=== PATIENT | female | born 1990 | race Caucasian/White ===

== ENCOUNTER 2017-11-09 16:41 | Emergency (ER) | payer OTHER ==
[2017-11-09 16:49] VITALS: BMI 42.0
[2017-11-09 16:50] VITALS: TEMP 98.2
--- NOTE | 2017-11-09 18:05 | ED PDOC ---
Arrival/HPI - General Chief Complaint: Medical Clearance Time Seen by Provider: 11/09/17 17:49 Historian: Patient - History of Present Illness Narrative History of Present Illness (Text): 11/09/17 18:03 25 F presents with left axillary pressure and reproducible left pressure on chest and below left breast tissue. Patient states she feels nausea, with the pain and feels weak in her left arm because of the swelling. Patient denies any trauma. Patient has been to ED before for similar symptoms. 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 She is right handed and tries not to use her left arm that often compared to her right hand. No findings. EKG is NSR @ 68bpm. 11/09/17 20:12 Time/Duration: < week Symptom Onset: Gradual Symptom Course: Intermittent Activities at Onset: Rest, Light Past Medical History - Provider Review Nursing Documentation Reviewed: Yes - Infectious Disease Hx of Infectious Diseases: None - Cardiac Hx Cardiac Disorders: No - Pulmonary Hx Respiratory Disorders: No - Neurological Hx Migraine: Yes - HEENT Hx HEENT Disorder: No - Renal Hx Renal Disorder: No - Endocrine/Metabolic Hx Endocrine Disorders: No - Hematological/Oncological Hx Blood Disorders: No - Integumentary Hx Dermatological Disorder: No - Musculoskeletal/Rheumatological Hx Musculoskeletal Disorders: No - Gastrointestinal Hx Gastrointestinal Disorders: No - Genitourinary/Gynecological Hx Genitourinary Disorders: No - Psychiatric Hx Psychophysiologic Disorder: No Hx Substance Use: No - Anesthesia Hx Anesthesia: No Family/Social History - Physician Review Nursing Documentation Reviewed: Yes Family/Social History: No Known Family HX Smoking Status: Current Some Days Smoker Hx Alcohol Use: No Hx Substance Use: No Allergies/Home Meds Allergies/Adverse Reactions: Allergies No Known Allergies Allergy (Verified 11/09/17 16:49) Review of Systems - Physician Review All systems were reviewed & negative as marked: Yes - Review of Systems Constitutional: Normal. absent: Fatigue, Weight Change, Fevers, Night Sweats Eyes: Normal. absent: Vision Changes, Photophobia, Eye Pain ENT: Normal. absent: Hearing Changes, Tinnitus, TMJ Pain Respiratory: Normal. absent: SOB, Cough, Sputum Cardiovascular: Normal, Chest Pain. absent: Palpitations, Edema Gastrointestinal: Normal. absent: Abdominal Pain Genitourinary Female: Normal. absent: Dysuria, Frequency, Hematuria Musculoskeletal: Normal, Back Pain. absent: Arthralgias, Neck Pain Skin: Normal. absent: Rash, Pruritis, Skin Lesions Neurological: Normal. absent: Headache, Dizziness, Focal Weakness Endocrine: Normal. absent: Diaphoresis, Polyuria, Polydipsia Hemo/Lymphatic: Normal. absent: Adenopathy, Easy Bleeding, Easy Bruising Psychiatric: Normal. absent: Anxiety, Depression, Suicidal Ideation Physical Exam Vital Signs Reviewed: Yes Vital Signs Temp Pulse Resp BP Pulse Ox 11/09/17 19:10 74 16 102/57 L 100 11/09/17 16:50 98.2 F 75 19 94/67 L 97 11/09/17 16:49 98.2 F 79 19 94/67 L 98 Temperature: Afebrile Blood Pressure: Hypotensive Pulse: Regular Respiratory Rate: Normal Appearance: Positive for: Non-Toxic, Comfortable Pain Distress: Mild Mental Status: Positive for: Alert and Oriented X 3 - Systems Exam Head: Present: Atraumatic, Normocephalic Pupils: Present: PERRL Extroacular Muscles: Present: EOMI. No: Gaze Palsy, Entrapment Conjunctiva: Present: Normal. No: Injected, Icteric Mouth: Present: Moist Mucous Membranes, Normal Lips, Normal Tounge, Normal Teeth. No: Dry, Drooling, Trismus Neck: Present: Normal Range of Motion, Trachea Midline. No: Meningeal Signs, MIDLINE TENDERNESS, Paraspinal Tenderness, JVD Cardiovascular: Present: Regular Rate and Rhythm, Normal S1, S2. No: Murmurs, Tachycardic, Bradycardic, Rub, Gallop Abdomen: Present: Normal Bowel Sounds. No: Tenderness, Distention Upper Extremity: Present: Normal Inspection, Normal ROM, NORMAL PULSES, Capillary Refill < 2s. No: Cyanosis, Edema Lower Extremity: Present: Normal Inspection, NORMAL PULSES, Normal ROM, Capillary Refill < 2 s. No: Edema, CALF TENDERNESS Neurological: Present: GCS=15, CN II-XII Intact, Speech Normal, Motor Func Grossly Intact, Normal Sensory Function, Norm Deep Tendon Reflexes Skin: Present: Warm, Dry, Normal Color. No: Rashes Psychiatric: Present: Alert, Oriented x 3, Normal Insight, Normal Concentration , Normal Affect, Normal Mood Medical Decision Making ED Course and Treatment: 11/09/17 18:13 ekg NS 1L bolus cxr cbc, cmp, mg, phos troponin I coags 11/09/17 18:43 PERC negative for PE Re-evaluation Time: 20:13 Reassessment Condition: Re-examined, Unchanged - Lab Interpretations Lab Results: 11/09/17 19:00 11/09/17 19:10 Lab Results 11/09/17 19:10: Sodium 139, Potassium 4.2, Chloride 105, Carbon Dioxide 24, Anion Gap 14, BUN 19, Creatinine 0.7, Est GFR ( Amer) > 60, Est GFR (Non- Af Amer) > 60, Random Glucose 74, Calcium 9.9, Total Bilirubin 0.5, AST 14, ALT 29, Alkaline Phosphatase 73, Total Protein 7.1, Albumin 4.0, Globulin 3.1, Albumin/Globulin Ratio 1.3 11/09/17 19:00: Phosphorus 3.4, Magnesium 2.1, Troponin I < 0.01 11/09/17 19:00: PT 13.4 H, INR 1.17 H, APTT 30.5 11/09/17 19:00: WBC 7.9, RBC 4.13, Hgb 11.4 L, Hct 35.5 L, MCV 86.0, MCH 27.6, MCHC 32.1, RDW 14.3, Plt Count 251, MPV 9.0, Gran % 52.2, Lymph % (Auto) 42.5 H , [place] % (Auto) 3.8, Eos % (Auto) 1.0 L, Baso % (Auto) 0.5, Gran # 4.14, Lymph # (Auto) 3.4, [place] # (Auto) 0.3, Eos # (Auto) 0.1, Baso # (Auto) 0.04 Interpretation: No clinic. lab abnormalty - RAD Interpretation Radiology Orders: 11/09/17 18:39 CHEST PORTABLE [RAD] Stat - EKG Interpretation Type: 12 lead EKG (68bpm) - Medication Orders Current Medication Orders: Discontinued Medications Sodium Chloride (Sodium Chloride 0.9%) 1,000 mls @ 999 mls/hr IV .Q1H1M STA Stop: 11/09/17 19:39 Last Admin: 11/09/17 19:05 Dose: 999 mls/hr eMAR Start Stop Document 11/09/17 19:05 SRE (Rec: 11/09/17 19:07 SRE [id number]) Intravenous Solution Start Date 11/09/17 Start Time 19:06 End Date 11/09/17 End time 20:00 Total Infusion Time 54 Disposition/Present on Arrival - Present on Arrival Any Indicators Present on Arrival: No History of DVT/PE: No History of Uncontrolled Diabetes: No Urinary Catheter: No History of Decub. Ulcer: No History Surgical Site Infection Following: None - Disposition Have Diagnosis and Disposition been Completed?: Yes Diagnosis: Chest wall pain Disposition: HOME/ ROUTINE Disposition Time: 20:39 Patient Plan: Discharge Patient Problems: Current Active Problems Problem Status Onset Chest wall pain Acute Condition: GOOD Discharge Instructions (ExitCare): Chest Pain (ED) [facility] - Follow up with primary Forms: [employer] (Arabic)
[2017-11-09] MEDS ORDERED: Sodium Chloride 0.9% 1,000 ML IV STA (18:39)
[2017-11-09 19:16] LABS: BASO # 0.04 K/mm3 (0.0-2.0); BASO % 0.5 % (0.0-3.0); EOS # 0.1 (0.0-0.7); GRAN # 4.14 (1.4-6.5); GRAN % 52.2 % (50.0-68.0); HEMOGLOBIN 11.4 g/dL (12.0-16.0); LYMPH # 3.4 (1.2-3.4); LYMPH % 42.5 % (22.0-35.0); MEAN CORPUSCULAR HEMOGLOBIN 27.6 pg (25.0-35.0); MEAN CORPUSCULAR HGB CONC 32.1 g/dl (31.0-37.0); MONO # 0.3 (0.1-0.6); MONO % 3.8 % (1.0-6.0); RBC 4.13 10^6/uL (3.5-6.1); RED CELL DISTRIBUTION WIDTH 14.3 % (11.5-14.5); WHITE BLOOD COUNT 7.9 10^3/ul (4.5-11.0)
[2017-11-09 19:28] LABS: INR 1.17 (0.93-1.08); PARTIAL THROMBOPLASTIN TIME 30.5 Seconds (25.1-36.5); PROTHROMBIN TIME 13.4 SECONDS (9.4-12.5)
[2017-11-09 19:31] LABS: ALB/GLOB RATIO 1.3 (1.1-1.8); ALT/SGPT 29 U/L (7-56); AST/SGOT 14 U/L (14-36); BLOOD UREA NITROGEN 19 mg/dL (7-21); CALCIUM 9.9 mg/dL (8.4-10.5); GFR AFRICAN-AMERICAN > 60; GFR NON-AFRICAN AMERICAN > 60
[2017-11-09 19:38] LABS: MAGNESIUM 2.1 mg/dL (1.7-2.2)
[2017-11-09 19:39] LABS: TROPONIN I < 0.01 ng/mL
[2017-11-09 19:42] VITALS: BP 102/57; PULSE 74; RESP 16; O2SAT 100
--- NOTE | 2017-11-10 10:26 | RAD ---
HISTORY: chest pain COMPARISON: No prior. FINDINGS: LUNGS: No active pulmonary disease. PLEURA: No significant pleural effusion identified, no pneumothorax apparent. CARDIOVASCULAR: Normal. OSSEOUS STRUCTURES: No significant abnormalities. VISUALIZED UPPER ABDOMEN: Normal. OTHER FINDINGS: None. IMPRESSION: No active disease.
--- NOTE | 2017-11-10 13:08 | CARD ---
APPROVED REPORT EKG Measurement Heart [id number] <Conclusion> Normal sinus rhythm Normal ECG
== END 2017-11-09 20:58 | disposition home or self-care (01) ==
LOC: ED 16:41
DX: R07.89 Other chest pain (principal)
CPT/HCPCS: 71045; 80053; 83735; 84100; 84484; 85025; 85610; 85730; 93005; 96360; 99283; J7040

== ENCOUNTER 2018-03-29 11:59 | Emergency (ER) | payer OTHER ==
[2018-03-29 11:59] VITALS: BMI 42.0
[2018-03-29] MEDS ORDERED: Sodium Chloride 0.9% 1,000 ML IV STA (12:15)
--- NOTE | 2018-03-29 12:29 | ED PDOC ---
Arrival/HPI - General Chief Complaint: Back Pain Time Seen by Provider: 03/29/18 12:02 Historian: Patient - History of Present Illness Narrative History of Present Illness (Text): 03/29/18 12:14 A 27 year old female, with no significant past medical history, presents to the emergency department complaining of left flank pain and suprapubic pain for a few days. Patient reports also experiencing dysuria, but denies any falls, nausea, vomiting, or any other complaints. Also, patient mentions she takes Ibuprofen every day at home. No PMD Past Medical History - Provider Review Nursing Documentation Reviewed: Yes - Infectious Disease Hx of Infectious Diseases: None - Cardiac Hx Cardiac Disorders: No - Pulmonary Hx Respiratory Disorders: No - Neurological Hx Migraine: Yes - HEENT Hx HEENT Disorder: No - Renal Hx Renal Disorder: No - Endocrine/Metabolic Hx Endocrine Disorders: No - Hematological/Oncological Hx Blood Disorders: No - Integumentary Hx Dermatological Disorder: No - Musculoskeletal/Rheumatological Hx Musculoskeletal Disorders: No - Gastrointestinal Hx Gastrointestinal Disorders: No - Genitourinary/Gynecological Hx Genitourinary Disorders: No - Psychiatric Hx Psychophysiologic Disorder: No Hx Substance Use: No - Anesthesia Hx Anesthesia: No Family/Social History - Physician Review Nursing Documentation Reviewed: Yes Family/Social History: No Known Family HX Smoking Status: Never Smoked Hx Alcohol Use: Yes Frequency of alcohol use: Socially Hx Substance Use: No Allergies/Home Meds Allergies/Adverse Reactions: Allergies No Known Allergies Allergy (Verified 03/29/18 12:06) Home Medications: Home Meds Medication Instructions Recorded Confirmed No Known Home Med 03/29/18 03/29/18 Review of Systems - Physician Review All systems were reviewed & negative as marked: Yes - Review of Systems Constitutional: absent: Fevers, Night Sweats Respiratory: absent: SOB Cardiovascular: absent: Chest Pain Gastrointestinal: Abdominal Pain (suprapubic). absent: Diarrhea, Nausea, Vomiting Genitourinary Female: Dysuria Musculoskeletal: Back Pain (left flank pain) Physical Exam Vital Signs Reviewed: Yes Vital Signs Temp Pulse Resp BP Pulse Ox 03/29/18 13:05 98 F 80 16 120/75 99 03/29/18 11:59 98.1 F 83 18 111/76 97 Temperature: Afebrile Blood Pressure: Normal Pulse: Regular Respiratory Rate: Normal Appearance: Positive for: Well-Appearing Pain Distress: None Mental Status: Positive for: Alert and Oriented X 3 - Systems Exam Head: Present: Atraumatic, Normocephalic Pupils: Present: PERRL Extroacular Muscles: Present: EOMI Conjunctiva: Present: Normal Mouth: Present: Moist Mucous Membranes Neck: Present: Normal Range of Motion Respiratory/Chest: Present: Clear to Auscultation, Good Air Exchange. No: Respiratory Distress, Accessory Muscle Use Cardiovascular: Present: Regular Rate and Rhythm, Normal S1, S2. No: Murmurs Abdomen: Present: Tenderness (suprapubic region) Back: Present: Other (left flank tenderness) Upper Extremity: Present: Normal Inspection. No: Cyanosis, Edema Lower Extremity: Present: Normal Inspection. No: Edema Neurological: Present: GCS=15, CN II-XII Intact, Speech Normal Skin: Present: Warm, Dry, Normal Color. No: Rashes Psychiatric: Present: Alert, Oriented x 3, Normal Insight, Normal Concentration Medical Decision Making ED Course and Treatment: 03/29/18 12:16 Impression: 27 year old female with left flank pain and suprapubic pain. Physical exam shows left flank tenderness and suprapubic tenderness. Plan: -- Labs -- Urinalysis -- Tylenol -- IV Fluids -- Reassess and disposition Progress Notes: 03/29/18 14:40 consider uti vs pyelo vs renal colic vs msk pain - labs imaging pending labs unremarkable. ua neg for blood, infection. pt refuses ct states she feels well for dc. less likely uti pyelo. pt understands risks of not obtaining ct, prefers to return with any worsening. - Lab Interpretations Lab Results: 03/29/18 12:40 03/29/18 12:40 Lab Results 03/29/18 12:40: Sodium 140, Potassium 4.1, Chloride 104, Carbon Dioxide 24, Anion Gap 16, BUN 14, Creatinine 0.6 L, Est GFR ( Amer) > 60, Est GFR ( Non-Af Amer) > 60, Random Glucose 99, Calcium 9.5, Magnesium 1.8, Total Bilirubin 0.6, AST 19, ALT 26, Alkaline Phosphatase 70, Total Protein 7.7, Albumin 4.2, Globulin 3.4, Albumin/Globulin Ratio 1.2, Lipase 35 03/29/18 12:40: PT 13.2 H, INR 1.14 H, APTT 29.4 03/29/18 12:40: WBC 8.1, RBC 4.42, Hgb 12.1, Hct 36.9, MCV 83.5, MCH 27.4, MCHC 32.8, RDW 14.0, Plt Count 268, MPV 8.8, Gran % 53.5, Lymph % (Auto) 42.4 H, [place] % (Auto) 3.0, Eos % (Auto) 0.9 L, Baso % (Auto) 0.2, Gran # 4.35, Lymph # ( Auto) 3.5 H, [place] # (Auto) 0.2, Eos # (Auto) 0.1, Baso # (Auto) 0.02 03/29/18 12:33: Urine Color Yellow, Urine Appearance Clear, Urine pH 6.0, Ur Specific Jermyn 1.020, Urine Protein Negative, Urine Glucose (UA) Negative, Urine Ketones Negative, Urine Blood Negative, Urine Nitrate Negative, Urine Bilirubin Negative, Urine Urobilinogen 0.2, Ur Leukocyte Esterase Negative, Urine HCG, Qual Negative - Medication Orders Current Medication Orders: Discontinued Medications Acetaminophen (Tylenol 325mg Tab) 975 mg PO STAT STA Stop: 03/29/18 12:17 Last Admin: 03/29/18 12:46 Dose: 975 mg MAR Pain/Vitals Document 03/29/18 12:46 SRE (Rec: 03/29/18 12:46 SRE [id number]) Pain Reassessment Is This A Pain ReAssessment? Yes Sleep Is patient sleeping during reassessment? No Presence of Pain Presence of Pain Yes Pain Scale Used Pain Scale Used Numeric Location Left, Right or Bilateral Left Pain Location Body Site Back Description Intermittent Intensity 4 Sodium Chloride (Sodium Chloride 0.9%) 1,000 mls @ 1,000 mls/hr IV .Q1H STA Stop: 03/29/18 13:14 Last Admin: 03/29/18 12:43 Dose: 1,000 mls/hr eMAR Start Stop Document 03/29/18 12:43 SRE (Rec: 03/29/18 12:46 SRE [id number]) Intravenous Solution Start Date 03/29/18 Start Time 12:46 End Date 03/29/18 End time 13:50 Total Infusion Time 64 - Scribe Statement The provider has reviewed the documentation as recorded by the Tiera Garcia Provider Scribe Attestation: All medical record entries made by the Tiera were at my direction and personally dictated by me. I have reviewed the chart and agree that the record accurately reflects my personal performance of the history, physical exam, medical decision making, and the department course for this patient. I have also personally directed, reviewed, and agree with the discharge instructions and disposition. Disposition/Present on Arrival - Present on Arrival Any Indicators Present on Arrival: No History of DVT/PE: No History of Uncontrolled Diabetes: No Urinary Catheter: No History of Decub. Ulcer: No History Surgical Site Infection Following: None - Disposition Have Diagnosis and Disposition been Completed?: Yes Diagnosis: Flank pain Disposition: HOME/ ROUTINE Disposition Time: 01:00 Condition: STABLE Discharge Instructions (ExitCare): Acute Abdomen (Belly Pain), Adult (DC), Flank Pain (DC) Additional Instructions: please return to emergency room with worsening symptoms. you are declining a ct scan today, but you are welcome to return to any emergency room with any concern at any time. Referrals: [facility] [Outside] - Follow up with primary [facility] [place]] - Follow up with primary Amy Swift MD [Primary Care Provider] - Follow up with primary Jackson Gilliland MD [Staff Provider] - Follow up with primary Forms: [employer] (Bulgarian)
[2018-03-29 12:36] LABS: URINE BILIRUBIN NEGATIVE (NEGATIVE); URINE BLOOD NEGATIVE (NEGATIVE); URINE GLUCOSE (UA) NEGATIVE (NEGATIVE); URINE LEUKOCYTE ESTERASE NEGATIVE Leu/uL (NEGATIVE); URINE PROTEIN NEGATIVE mg/dL (<30 mg/dL); URINE UROBILINOGEN 0.2 E.U./dL (<1 E.U./dL)
[2018-03-29 12:44] LABS: URINE COLOR YELLOW (YELLOW)
[2018-03-29 12:45] LABS: HCG,QUALITATIVE URINE NEGATIVE (NEGATIVE); URINE APPEARANCE CLEAR (CLEAR)
[2018-03-29 12:53] LABS: BASO # 0.02 K/mm3 (0.0-2.0); BASO % 0.2 % (0.0-3.0); EOS # 0.1 (0.0-0.7); EOS % 0.9 % (1.5-5.0); GRAN # 4.35 (1.4-6.5); GRAN % 53.5 % (50.0-68.0); HEMOGLOBIN 12.1 g/dL (12.0-16.0); LYMPH # 3.5 (1.2-3.4); LYMPH % 42.4 % (22.0-35.0); MEAN CELL VOLUME 83.5 fl (80.0-105.0); MEAN CORPUSCULAR HEMOGLOBIN 27.4 pg (25.0-35.0); MEAN CORPUSCULAR HGB CONC 32.8 g/dl (31.0-37.0); MEAN PLATELET VOLUME 8.8 fl (7.0-11.0); MONO # 0.2 (0.1-0.6); RBC 4.42 10^6/uL (3.5-6.1); WHITE BLOOD COUNT 8.1 10^3/ul (4.5-11.0)
[2018-03-29 13:01] LABS: ALB/GLOB RATIO 1.2 (1.1-1.8); ALBUMIN 4.2 g/dL (3.0-4.8); ALT/SGPT 26 U/L (7-56); AST/SGOT 19 U/L (14-36); BLOOD UREA NITROGEN 14 mg/dL (7-21); CALCIUM 9.5 mg/dL (8.4-10.5); GFR AFRICAN-AMERICAN > 60; GFR NON-AFRICAN AMERICAN > 60; LIPASE 35 U/L (23-300)
[2018-03-29 13:06] VITALS: BP 120/75; PULSE 80; RESP 16; TEMP 98; O2SAT 99
[2018-03-29 13:06] LABS: INR 1.14 (0.93-1.08); PARTIAL THROMBOPLASTIN TIME 29.4 Seconds (25.1-36.5); PROTHROMBIN TIME 13.2 SECONDS (9.4-12.5)
== END 2018-03-29 13:26 | disposition home or self-care (01) ==
LOC: ED 11:59
DX: R10.9 Unspecified abdominal pain (principal)
CPT/HCPCS: 80053; 81003; 83690; 83735; 84703; 85025; 85610; 85730; 96360; 99283; J7030

== ENCOUNTER 2018-06-13 10:00 | Emergency (ER) | payer OTHER ==
[2018-06-13 10:00] VITALS: BMI 42.0
[2018-06-13 10:24] VITALS: RESP 18
[2018-06-13 11:43] LABS: BASO # 0.02 K/mm3 (0.0-2.0); BASO % 0.3 % (0.0-3.0); EOS # 0.1 (0.0-0.7); EOS % 0.9 % (1.5-5.0); GRAN # 3.61 (1.4-6.5); GRAN % 53.1 % (50.0-68.0); HEMOGLOBIN 12.6 g/dL (12.0-16.0); LYMPH # 2.7 (1.2-3.4); LYMPH % 40.3 % (22.0-35.0); MEAN CELL VOLUME 82.6 fl (80.0-105.0); MEAN CORPUSCULAR HEMOGLOBIN 27.1 pg (25.0-35.0); MEAN CORPUSCULAR HGB CONC 32.8 g/dl (31.0-37.0); MEAN PLATELET VOLUME 8.7 fl (7.0-11.0); MONO # 0.4 (0.1-0.6); MONO % 5.4 % (1.0-6.0); RBC 4.65 10^6/uL (3.5-6.1); RED CELL DISTRIBUTION WIDTH 13.9 % (11.5-14.5); WHITE BLOOD COUNT 6.8 10^3/ul (4.5-11.0)
[2018-06-13 11:51] LABS: INR 1.15; PARTIAL THROMBOPLASTIN TIME 34.4 Seconds (25.1-36.5); PROTHROMBIN TIME 13.3 SECONDS (9.4-12.5)
[2018-06-13 11:54] LABS: ALB/GLOB RATIO 1.2 (1.1-1.8); ALBUMIN 4.4 g/dL (3.0-4.8); ALT/SGPT 20 U/L (7-56); AST/SGOT 22 U/L (14-36); BLOOD UREA NITROGEN 16 mg/dL (7-21); CALCIUM 9.4 mg/dL (8.4-10.5); GFR NON-AFRICAN AMERICAN > 60
[2018-06-13 12:02] LABS: TROPONIN I < 0.01 ng/mL
--- NOTE | 2018-06-13 13:58 | ED PDOC ---
Arrival/HPI - General Chief Complaint: Chest Pain Time Seen by Provider: 06/13/18 10:32 Historian: Patient - History of Present Illness Narrative History of Present Illness (Text): 06/13/18 13:53 27yo female with no pmhx who present with 2weeks history of intermittent palpitations and midsternal chest pain that radiates to her left shoulder. states the pain usually makes her have SOB. She have not taken any medication for the pain. Denies fever chills, nausea, vomiting, diarrhea, constipations, nausea, diaphoresis, LE edema, calf pain, recent surgery/travel, OCP use. Past Medical History - Provider Review Nursing Documentation Reviewed: Yes - Infectious Disease Hx of Infectious Diseases: None - Cardiac Hx Cardiac Disorders: No - Pulmonary Hx Respiratory Disorders: No - Neurological Hx Neurological Disorder: Yes Hx Migraine: Yes - HEENT Hx HEENT Disorder: No - Renal Hx Renal Disorder: No - Endocrine/Metabolic Hx Endocrine Disorders: No - Hematological/Oncological Hx Blood Disorders: No - Integumentary Hx Dermatological Disorder: No - Musculoskeletal/Rheumatological Hx Musculoskeletal Disorders: No - Gastrointestinal Hx Gastrointestinal Disorders: No - Genitourinary/Gynecological Hx Genitourinary Disorders: No - Psychiatric Hx Psychophysiologic Disorder: Yes Hx Anxiety: Yes Hx Substance Use: No - Anesthesia Hx Anesthesia: No Family/Social History - Physician Review Nursing Documentation Reviewed: Yes Family/Social History: Unknown Family HX Smoking Status: Never Smoked Hx Alcohol Use: No Hx Substance Use: No Allergies/Home Meds Allergies/Adverse Reactions: Allergies No Known Allergies Allergy (Verified 04/25/18 10:14) Review of Systems - Physician Review All systems were reviewed & negative as marked: Yes - Review of Systems Constitutional: Normal Eyes: Normal ENT: Normal Respiratory: Normal Cardiovascular: Chest Pain, Palpitations Gastrointestinal: Normal Genitourinary Female: Normal Musculoskeletal: Normal Skin: Normal Neurological: Normal Endocrine: Normal Hemo/Lymphatic: Normal Psychiatric: Normal Physical Exam Vital Signs Reviewed: Yes Vital Signs Temp Pulse Resp BP Pulse Ox 06/13/18 14:32 99 06/13/18 14:30 98.2 F 82 18 114/72 99 06/13/18 12:55 80 18 119/68 99 06/13/18 10:18 98.7 F 87 18 104/70 98 Temperature: Afebrile Blood Pressure: Normal Pulse: Regular Respiratory Rate: Normal Appearance: Positive for: Well-Appearing, Non-Toxic, Comfortable Pain Distress: None Mental Status: Positive for: Alert and Oriented X 3 - Systems Exam Head: Present: Atraumatic, Normocephalic Pupils: Present: PERRL Extroacular Muscles: Present: EOMI Conjunctiva: Present: Normal Mouth: Present: Moist Mucous Membranes Neck: Present: Normal Range of Motion Respiratory/Chest: Present: Clear to Auscultation, Good Air Exchange. No: Respiratory Distress, Accessory Muscle Use, Wheezes, Decreased Breath Sounds, Rales, Retracting, Rhonchi Cardiovascular: Present: Regular Rate and Rhythm, Normal S1, S2. No: Murmurs Abdomen: No: Tenderness, Distention, Peritoneal Signs Back: Present: Normal Inspection Upper Extremity: Present: Normal Inspection, Normal ROM, NORMAL PULSES, Neurovascularly Intact. No: Cyanosis, Edema, Tenderness, Swelling Lower Extremity: Present: Normal Inspection. No: Edema Neurological: Present: GCS=15, CN II-XII Intact, Speech Normal Skin: Present: Warm, Dry, Normal Color. No: Rashes Psychiatric: Present: Alert, Oriented x 3, Normal Insight, Normal Concentration Medical Decision Making ED Course and Treatment: 06/13/18 18:55 PT presented for stated history. Her PECARN score is negative. With exception of morbidity she have no cardiac risk factor. Lab was unremarkable CXR NAD Left shoulder xray - Negative Result was DW the pt. 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 - Lab Interpretations Lab Results: 06/13/18 11:00 06/13/18 11:00 Lab Results 06/13/18 11:00: Sodium 140, Potassium 3.9, Chloride 102, Carbon Dioxide 26, Anion Gap 15, BUN 16, Creatinine 0.7, Est GFR ( Amer) > 60, Est GFR (Non- Af Amer) > 60, Random Glucose 97, Calcium 9.4, Magnesium 2.3 H, Total Bilirubin 0.7, AST 22, ALT 20, Alkaline Phosphatase 79, Lactate Dehydrogenase 357, Total Creatine Kinase 66, Troponin I < 0.01, Total Protein 8.2, Albumin 4.4, Globulin 3.8, Albumin/Globulin Ratio 1.2 06/13/18 11:00: PT 13.3 H, INR 1.15, APTT 34.4, D-Dimer, Quantitative 226 06/13/18 11:00: WBC 6.8, RBC 4.65, Hgb 12.6, Hct 38.4, MCV 82.6, MCH 27.1, MCHC 32.8, RDW 13.9, Plt Count 293, MPV 8.7, Gran % 53.1, Lymph % (Auto) 40.3 H, [place] % (Auto) 5.4, Eos % (Auto) 0.9 L, Baso % (Auto) 0.3, Gran # 3.61, Lymph # ( Auto) 2.7, [place] # (Auto) 0.4, Eos # (Auto) 0.1, Baso # (Auto) 0.02 - RAD Interpretation Radiology Orders: 06/13/18 10:32 CHEST TWO VIEWS (PA/LAT) [RAD] Stat SHOULDER LEFT [RAD] Stat - Medication Orders Current Medication Orders: Discontinued Medications Ibuprofen (Motrin Tab) 600 mg PO STAT STA Stop: 06/13/18 10:34 Last Admin: 06/13/18 11:00 Dose: 600 mg [facility] Pain/Vitals Document 06/13/18 11:00 ANTONIO (Rec: 06/13/18 11:22 ANTONIO [id number]) Pain Reassessment Is This A Pain ReAssessment? No Sleep Is patient sleeping during reassessment? No Presence of Pain Presence of Pain Yes Re-Assess: [facility] Pain/Vitals Document 06/13/18 12:00 ANTONIO (Rec: 06/13/18 14:47 ANTONIO [id number]) Pain Reassessment Is This A Pain ReAssessment? Yes Sleep Is patient sleeping during reassessment? No Presence of Pain Presence of Pain Yes Pain Scale Used Pain Scale Used Numeric Location Intensity 3 Scale Used Numeric Disposition/Present on Arrival - Present on Arrival Any Indicators Present on Arrival: No History of DVT/PE: No History of Uncontrolled Diabetes: No Urinary Catheter: No History of Decub. Ulcer: No History Surgical Site Infection Following: None - Disposition Have Diagnosis and Disposition been Completed?: Yes Diagnosis: Chest pain, Acute pain of left shoulder Disposition: HOME/ ROUTINE Disposition Time: 14:05 Patient Plan: Discharge Condition: STABLE Discharge Instructions (ExitCare): Chest Pain (ED) Additional Instructions: Follow up with your Doctor Return to ED for any new or worsening symptoms Prescriptions: Ibuprofen [Motrin Tab] 600 mg PO Q6 #15 tab Referrals: [facility], [Primary Care Provider] - Follow up with primary Shannan Vernon MD [Medical Doctor] - [place] up with primary [facility] [place] - Follow up with primary [facility] [Outside] - Follow up with primary Forms: [employer] (Trinidadian)
[2018-06-13 14:43] VITALS: O2SAT 99
[2018-06-13 14:44] VITALS: BP 114/72; PULSE 82; TEMP 98.2
--- NOTE | 2018-06-13 15:50 | RAD ---
Date of service: 06/13/2018 HISTORY: chest pain COMPARISON: Comparison is made with 11/09/2017 TECHNIQUE: Chest PA and lateral FINDINGS: LUNGS: No active pulmonary disease. PLEURA: No significant pleural effusion identified. No pneumothorax apparent. CARDIOVASCULAR: Normal. OSSEOUS STRUCTURES: No significant abnormalities. VISUALIZED UPPER ABDOMEN: Normal. OTHER FINDINGS: None. IMPRESSION: No active disease.
--- NOTE | 2018-06-13 15:51 | RAD ---
Date of service: 06/13/2018 PROCEDURE: Radiographs of the Left Shoulder HISTORY: shoulder pain COMPARISON: No prior. FINDINGS: BONES: Normal. No fracture. JOINTS: Normal. Glenohumeral and acromioclavicular joints preserved. No osteoarthritis. SOFT TISSUES: Normal. OTHER FINDINGS: None. IMPRESSION: No evidence of acute fracture or dislocation.
--- NOTE | 2018-06-13 22:02 | CARD ---
APPROVED REPORT Date of service: 06/13/2018 EKG Measurement Heart [id number] [id number] <Conclusion> Normal sinus rhythm Normal ECG
== END 2018-06-13 14:32 | disposition home or self-care (01) ==
LOC: ED 10:00
DX: R07.9 Chest pain, unspecified (principal); M25.512 Pain in left shoulder

== ENCOUNTER 2018-07-04 18:13 | Emergency (ER) | payer OTHER ==
[2018-07-04 20:19] VITALS: BMI 42.8
== END 2018-07-04 21:27 | disposition left against medical advice (07) ==
LOC: ED 18:13
DX: Z02.89 Encounter for other administrative examinations (principal); N83.209 Unspecified ovarian cyst, unspecified side

== ENCOUNTER 2018-12-23 17:08 | Emergency (ER) | payer OTHER ==
[2018-12-23 17:30] VITALS: BMI 42.2
[2018-12-23 17:35] VITALS: BP 100/74; PULSE 82; RESP 18; TEMP 98.2; O2SAT 99
[2018-12-23] MEDS ORDERED: Amoxicillin-Clav 875-125 mg Tab PO STA (17:49)
--- NOTE | 2018-12-23 17:52 | ED PDOC ---
Arrival/HPI - General Chief Complaint: Breast Problem Time Seen by Provider: 12/23/18 17:12 Historian: Patient - History of Present Illness Narrative History of Present Illness (Text): 12/23/18 17:49 28 y/o female, no significant pmh, nkda, c/o lt. armpit pain on and off x 1 week with no fall or trauma. Aching pain, aggravated by touching, pain to the left breast as well, no family history of breast cancer, no weight loss, no night sweat, no rash, no other medical or psychological complaints. Pt. is not breast feeding and no nipple discharges, no nipple inversion. Past Medical History - Provider Review Nursing Documentation Reviewed: Yes - Infectious Disease Hx of Infectious Diseases: None - Cardiac Hx Cardiac Disorders: No - Pulmonary Hx Respiratory Disorders: No - Neurological Hx Neurological Disorder: Yes Hx Migraine: Yes - HEENT Hx HEENT Disorder: No - Renal Hx Renal Disorder: No - Endocrine/Metabolic Hx Endocrine Disorders: No - Hematological/Oncological Hx Blood Disorders: No - Integumentary Hx Dermatological Disorder: No - Musculoskeletal/Rheumatological Hx Musculoskeletal Disorders: No - Gastrointestinal Hx Gastrointestinal Disorders: No - Genitourinary/Gynecological Hx Genitourinary Disorders: No Other/Comment: Ovarian cysts - Psychiatric Hx Psychophysiologic Disorder: Yes Hx Anxiety: Yes Hx Substance Use: No - Anesthesia Hx Anesthesia: No Family/Social History - Physician Review Nursing Documentation Reviewed: Yes Family/Social History: Unknown Family HX Smoking Status: hookah Hx Alcohol Use: No Hx Substance Use: No Allergies/Home Meds Allergies/Adverse Reactions: Allergies No Known Allergies Allergy (Verified 12/23/18 17:30) Review of Systems - Review of Systems Constitutional: absent: Fatigue, Fevers Eyes: absent: Vision Changes ENT: absent: Hearing Changes Respiratory: absent: SOB, Cough Cardiovascular: absent: Chest Pain Gastrointestinal: absent: Abdominal Pain, Nausea, Vomiting Skin: absent: Rash, Pruritis Neurological: absent: Headache, Dizziness Hemo/Lymphatic: Adenopathy Psychiatric: absent: Anxiety, Depression, Suicidal Ideation Physical Exam Vital Signs Reviewed: Yes Vital Signs Temp Pulse Resp BP Pulse Ox 12/23/18 17:33 98.2 F 82 18 100/74 99 Temperature: Afebrile Blood Pressure: Normal Pulse: Regular Respiratory Rate: Normal Appearance: Positive for: Well-Appearing, Non-Toxic, Comfortable Pain Distress: Mild Mental Status: Positive for: Alert and Oriented X 3 - Systems Exam Head: Present: Atraumatic, Normocephalic Pupils: Present: PERRL Extroacular Muscles: Present: EOMI Conjunctiva: Present: Normal Mouth: Present: Moist Mucous Membranes Neck: Present: Normal Range of Motion Respiratory/Chest: Present: Clear to Auscultation, Good Air Exchange. No: Respiratory Distress, Accessory Muscle Use Cardiovascular: Present: Regular Rate and Rhythm, Normal S1, S2. 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 No: Discoloration, Erythema, Fluctuance, Masses, Nipple Discharge, Swelling, Tender to Palpation Back: Present: Normal Inspection Upper Extremity: Present: Normal Inspection. No: Cyanosis, Edema Lower Extremity: Present: Normal Inspection. No: Edema Neurological: Present: GCS=15, CN II-XII Intact, Speech Normal Skin: Present: Warm, Dry, Normal Color. No: Rashes Psychiatric: Present: Alert, Oriented x 3, Normal Insight, Normal Concentration Medical Decision Making ED Course and Treatment: 12/23/18 17:52 -MOtrin and augmentin ordered 12/23/18 18:11 -Urine hcg is negative -Pt. feels better, pain decreased -Discussed with the patient that she would need outpatient obgyn/pmd/general surgeon follow up to ensure resolution of pain or she would need diagnostic outpatient study of the breast to r/o any malignancy and closely follow up . Pt. verbally expressed understanding. There is no fluctuancy or signs of the abscess/cellulitis. -Discharge home with augmentin, motrin, follow up with your own pmd and obgyn/surgeron for outpatient follow up and diagnostic breast sonogram study to r/o any malignancy and closely follow up within 2 days, return to the ER for any new or worsening signs or symptoms. - PA / [employer] METALWORK[employer] / Resident Statement / has reviewed & agrees with the documentation as recorded. Disposition/Present on Arrival - Present on Arrival Any Indicators Present on Arrival: No History of DVT/PE: No History of Uncontrolled Diabetes: No Urinary Catheter: No History of Decub. Ulcer: No History Surgical Site Infection Following: None - Disposition Have Diagnosis and Disposition been Completed?: Yes Diagnosis: Axillary lymphadenopathy, Breast pain Disposition: HOME/ ROUTINE Disposition Time: 18:12 Patient Plan: Discharge Patient Problems: Current Active Problems Problem Status Onset Axillary lymphadenopathy Acute Breast pain Acute Condition: IMPROVED Discharge Instructions (ExitCare): Chest Pain (ED) Additional Instructions: -Discharge home with augmentin, motrin, follow up with your own pmd and obgyn/surgeron for outpatient follow up and diagnostic breast sonogram study to r/o any malignancy and closely follow up within 2 days, return to the ER for any new or worsening signs or symptoms. Prescriptions: Amoxicillin/Clavulanate [Augmentin 875 MG-125 MG] 1 tab PO BID #20 tab Ibuprofen [Motrin Tab] 600 mg PO QID PRN #30 tab PRN Reason: Other Referrals: Zackary Fields MD [Staff Provider] - Follow up with primary Juli Leonard MD [Staff Provider] - Follow up with primary [facility] [place] [Outside] - Follow up with primary Forms: [employer] (Romansh), WORK NOTE
== END 2018-12-23 18:42 | disposition home or self-care (01) ==
LOC: ED 17:08
DX: R59.0 Localized enlarged lymph nodes (principal); N64.4 Mastodynia

== ENCOUNTER 2019-01-03 18:29 | Emergency (ER) | payer OTHER ==
[2019-01-03 18:49] VITALS: BMI 38.2
--- NOTE | 2019-01-03 20:26 | ED PDOC ---
Arrival/HPI - General Chief Complaint: ENT Problem Time Seen by Provider: 01/03/19 18:31 Historian: Patient - History of Present Illness Narrative History of Present Illness (Text): Anabel Hensley is a 28 year old female who presents to the Emergency department complaining of headache, right ear pain, and right arm pain status post fall yesterday. 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 Patient states she stepped on the fence because she did not see it and fell over. Patient landed on her right arm, hitting the right side of her head. Patient denies any loss of consciousness, dizziness, weakness, abdominal pain, chest pain, neck pain, or back pain. Patient notes the pain is inside of her ear. Patient denies any decreased hearing, blurred vision, or numbness/weakness/tingling in the extremities. Patient states she did not take any medication for pain today. Time/Duration: Other (yesterday) Symptom Onset: Gradual Symptom Course: Unchanged Activities at Onset: Light Context: Walking, Work Past Medical History - Provider Review Nursing Documentation Reviewed: Yes - Infectious Disease Hx of Infectious Diseases: None - Cardiac Hx Cardiac Disorders: No - Pulmonary Hx Respiratory Disorders: No - Neurological Hx Neurological Disorder: Yes Hx Migraine: Yes - HEENT Hx HEENT Disorder: No - Renal Hx Renal Disorder: No - Endocrine/Metabolic Hx Endocrine Disorders: No - Hematological/Oncological Hx Blood Disorders: No - Integumentary Hx Dermatological Disorder: No - Musculoskeletal/Rheumatological Hx Musculoskeletal Disorders: No - Gastrointestinal Hx Gastrointestinal Disorders: No - Genitourinary/Gynecological Hx Genitourinary Disorders: No Other/Comment: Ovarian cysts - Psychiatric Hx Psychophysiologic Disorder: Yes Hx Anxiety: Yes Hx Substance Use: No - Anesthesia Hx Anesthesia: No Family/Social History - Physician Review Nursing Documentation Reviewed: Yes Family/Social History: Unknown Family HX Smoking Status: Never Smoked Hx Alcohol Use: No Hx Substance Use: No Allergies/Home Meds Allergies/Adverse Reactions: Allergies No Known Allergies Allergy (Verified 01/03/19 18:50) Review of Systems - Physician Review All systems were reviewed & negative as marked: Yes - Review of Systems Constitutional: Normal. absent: Fevers Eyes: absent: Vision Changes, Photophobia, Eye Pain ENT: Other (+right ear pain). absent: Hearing Changes, Sore Throat, Epistaxis, Sinus Congestion Respiratory: Normal. absent: SOB, Cough Cardiovascular: absent: Chest Pain, Palpitations Gastrointestinal: absent: Abdominal Pain, Constipation, Diarrhea, Nausea, Vomiting Genitourinary Female: absent: Dysuria, Frequency, Hematuria, Urine Output Changes Musculoskeletal: Arthralgias, Myalgias (+right arm pain). absent: Back Pain, Neck Pain Skin: absent: Rash, Pruritis Neurological: Headache. absent: Dizziness Psychiatric: absent: Anxiety, Depression Physical Exam Vital Signs Reviewed: Yes Vital Signs Temp Pulse Resp BP Pulse Ox 01/03/19 18:49 98.4 F 78 19 94/66 L 98 Temperature: Afebrile Blood Pressure: Normal Pulse: Regular Respiratory Rate: Normal Appearance: Positive for: Well-Appearing, Non-Toxic, Comfortable Pain Distress: None Mental Status: Positive for: Alert and Oriented X 3 - Systems Exam Head: Present: Atraumatic. No: Tenderness (No mastoid tenderness), Contusion, Swelling, Ecchymosis, Abrasion, Laceration Pupils: Present: PERRL Extroacular Muscles: Present: EOMI Conjunctiva: Present: Normal Ears: Present: Other (Right ear: cerumen obstructing TM, no bleeding noted. no mastoid tenderness. Left ear exam: + cerumen obstructing TM.). No: TM Bulging, Fluid, TM Perf Mouth: Present: Moist Mucous Membranes Pharnyx: Present: Normal. No: ERYTHEMA, EXUDATE, TONSILS ENLARGED, Peritonsilar Swelling, Uvular Deviation, Muffled/Hoarse Voice, Strider, Soft Palate/Uvular Edema Nose (External): Present: Atraumatic Nose (Internal): Present: Normal Inspection Neck: Present: Normal Range of Motion (Full ROM). No: Meningeal Signs, MIDLINE TENDERNESS, Paraspinal Tenderness Respiratory/Chest: Present: Clear to Auscultation, Good Air Exchange. No: Respiratory Distress, Accessory Muscle Use, Tender to Palpation (no edema, no erythema; no ecchymosis. ) Cardiovascular: Present: Regular Rate and Rhythm, Normal S1, S2, Other. No: Murmurs Abdomen: Present: Other (no ecchymosis). No: Tenderness, Distention, Peritoneal Signs, Rebound, Guarding Back: Present: Normal Inspection. No: CVA Tenderness, Midline Tenderness, Paraspinal Tenderness Upper Extremity: Present: Normal ROM (Full ROM of right shoulder, right elbow, and right hand/wrist. ), Tenderness (Minimal right upper arm tenderness along the lateral aspect; ), Neurovascularly Intact, Capillary Refill < 2s, Other (3 small areas of ecchymosis on lateral aspect of humerus). No: Cyanosis, Edema, Swelling, Erythema Lower Extremity: Present: Normal Inspection. No: Edema Neurological: Present: GCS=15, Speech Normal, Gait Normal (Ambulatory with steady gait) Skin: Present: Warm, Dry, Normal Color. No: Rashes Psychiatric: Present: Alert, Oriented x 3 Medical Decision Making ED Course and Treatment: Impression: 28 year old female presents complaining of headache, right ear pain, and right arm pain status post fall yesterday. Plan: -- CT Head w/o contrast -- XR Right Humerus -- Reassess and disposition Progress Notes: 01/03/19 22:21 ct head; wnl Xrays right humerus; no fracture toradol given IM for pain. pt reassessment; pt is feeling better after medications; vitals stable. all result discussed with patient in depth. i advised f/u with pmd and orthopedist and advised immediate return if symptoms worsen, persist or if new symptoms develop. Patient verbalizes understanding of discharge instructions and need for immediate followup. All aspects of this case were discussed the attending of record. Impression: Head injury, headache, arm pain, ear pain Motrin every 6 hours as needed for pain Flexeril 1 tablet every 8 hours as needed for muscle spasms: May cause drowsiness Follow-up with a primary care physician within the next 2 days Follow-up with the orthopedist within the next 2 days Return immediately if symptoms worsen persist or if new concerning symptoms develop Reassessment Condition: Improved - RAD Interpretation Narrative RAD Interpretations (Text): CT Head: BRAIN No acute intraparenchymal hemorrhage. No mass lesion. No CT evidence for acute territorial infarct. No midline shift or extra-axial collections. VENTRICLES: No hydrocephalus. ORBITS: The orbits are unremarkable. SINUSES AND MASTOIDS: The paranasal sinuses and mastoid air cells are clear. BONES: No fracture. SOFT TISSUES: Unremarkable. IMPRESSION: No acute intracranial abnormality. Electronically signed on Jan 03, 2019 8:21:48 PM EDT by: Albert Alvarado M.D., ANGELO Certified By ABR & CBCCT Fellowship Trained MRI and CT Specialist Radiology Orders: 01/03/19 19:35 HEAD W/O CONTRAST [CT] Stat HUMERUS RIGHT [RAD] Stat Dye Expert: Radiologist - Harpalibe Statement The provider has reviewed the documentation as recorded by the Tiera Astorga Provider Scribe Attestation: All medical record entries made by the Scribe were at my direction and personally dictated by me. I have reviewed the chart and agree that the record accurately reflects my personal performance of the history, physical exam, medical decision making, and the department course for this patient. I have also personally directed, reviewed, and agree with the discharge instructions and disposition. Disposition/Present on Arrival - Present on Arrival Any Indicators Present on Arrival: No History of DVT/PE: No History of Uncontrolled Diabetes: No Urinary Catheter: No History of Decub. Ulcer: No History Surgical Site Infection Following: None - Disposition Have Diagnosis and Disposition been Completed?: Yes Diagnosis: Headache, Head injury, Contusion, arm, upper Disposition: HOME/ ROUTINE Disposition Time: 21:00 Patient Plan: Discharge Condition: GOOD Discharge Instructions (ExitCare): Closed Head Injury (DC), Headache, Adult, Contusion (DC) Additional Instructions: Motrin every 6 hours as needed for pain Flexeril 1 tablet every 8 hours as needed for muscle spasms: May cause drowsiness Follow-up with a primary care physician within the next 2 days follow-up with ENT specialist within the next 2 days. Follow-up with the orthopedist within the next 2 days Return immediately if symptoms worsen persist or if new concerning symptoms develop Prescriptions: Cyclobenzaprine [Cyclobenzaprine HCl] 10 mg PO Q8 #10 tab Ibuprofen [Motrin] 600 mg PO Q6H PRN #20 tab PRN Reason: pain/fever reduction Referrals: Shannan Vernon MD [Medical Doctor] - Follow up with primary [employer] [Outside] - Follow up with primary Parag Chatman III, MD [Medical Doctor] - Follow up with primary Sebastian Cole MD [Staff Provider] - Follow up with primary Franco Salmon DO [Staff Provider] - Follow up with primary Forms: [employer] (Persian)
[2019-01-03 22:17] VITALS: PULSE 80; RESP 18; TEMP 98.5; O2SAT 100
[2019-01-03 22:30] VITALS: BP 116/87
--- NOTE | 2019-01-04 09:01 | CT ---
Date of service: 01/03/2019 PROCEDURE: CT HEAD WITHOUT CONTRAST. HISTORY: head injury/headache/ right ear pain COMPARISON: None available. TECHNIQUE: Axial computed tomography images were obtained through the head/brain without intravenous contrast. Radiation dose: Total exam DLP = 824.57 mGy-cm. This CT exam was performed using one or more of the following dose reduction techniques: Automated exposure control, adjustment of the mA and/or kV according to patient size, and/or use of iterative reconstruction technique. FINDINGS: HEMORRHAGE: No intracranial hemorrhage. BRAIN: No mass effect or edema. No atrophy or chronic microvascular ischemic changes. VENTRICLES: Unremarkable. No hydrocephalus. CALVARIUM: Unremarkable. PARANASAL SINUSES: Unremarkable as visualized. No significant inflammatory changes. MASTOID AIR CELLS: Unremarkable as visualized. No inflammatory changes. OTHER FINDINGS: None. IMPRESSION: Normal CT of the Head.
--- NOTE | 2019-01-04 09:47 | RAD ---
PROCEDURE: Radiographs of the right humerus. HISTORY: fall, right upper arm pain COMPARISON: None. TECHNIQUE: 2 views obtained. FINDINGS: BONES: Normal. No fracture or focal lesion. SOFT TISSUES: Normal. OTHER FINDINGS: None. IMPRESSION: Normal radiographs of right humerus.
== END 2019-01-03 22:43 | disposition home or self-care (01) ==
LOC: ED 18:29
DX: S09.90XA Unspecified injury of head, initial encounter (principal); S40.021A Contusion of right upper arm, initial encounter; W19.XXXA Unspecified fall, initial encounter; Y93.01 Activity, walking, marching and hiking; R51 Headache
CPT/HCPCS: 70450; 73060; 81025; 96372; 99284; J1885

== ENCOUNTER 2019-02-11 15:23 | Emergency (ER) | payer OTHER ==
[2019-02-11 15:23] VITALS: BMI 38.2
[2019-02-11 15:36] VITALS: RESP 18
[2019-02-11] MEDS ORDERED: Sodium Chloride 0.9% 1,000 ML IV STA (15:58)
--- NOTE | 2019-02-11 16:07 | ED PDOC ---
Arrival/HPI - General Chief Complaint: Back Pain Time Seen by Provider: 02/11/19 15:44 Historian: Patient - History of Present Illness Narrative History of Present Illness (Text): 02/11/19 16:07 A 28 year old female, whose past medical history includes chronic neck pain, hypothyroidism, on Metformin for weight loss, presents to the emergency department complaining of left-side non-radiating neck pain and difficulty urinating. Patient denies any fever, chills, nausea, vomiting, diarrhea, or any other complaints at this time. Past Medical History - Provider Review Nursing Documentation Reviewed: Yes - Infectious Disease Hx of Infectious Diseases: None - Reproductive Menopause: No - Cardiac Hx Cardiac Disorders: No - Pulmonary Hx Respiratory Disorders: No - Neurological Hx Neurological Disorder: Yes Hx Migraine: Yes - HEENT Hx HEENT Disorder: No - Renal Hx Renal Disorder: No - Endocrine/Metabolic Hx Endocrine Disorders: No - Hematological/Oncological Hx Blood Disorders: No - Integumentary Hx Dermatological Disorder: No - Musculoskeletal/Rheumatological Hx Musculoskeletal Disorders: No - Gastrointestinal Hx Gastrointestinal Disorders: No - Genitourinary/Gynecological Hx Genitourinary Disorders: No Other/Comment: Ovarian cysts - Psychiatric Hx Psychophysiologic Disorder: Yes Hx Anxiety: Yes Hx Substance Use: No - Anesthesia Hx Anesthesia: No Family/Social History - Physician Review Nursing Documentation Reviewed: Yes Family/Social History: No Known Family HX Smoking Status: Never Smoked Hx Alcohol Use: No Hx Substance Use: No Allergies/Home Meds Allergies/Adverse Reactions: Allergies No Known Allergies Allergy (Verified 01/03/19 18:50) Home Medications: Home Meds Medication Instructions Recorded Confirmed Levothyroxine [Synthroid] 0.05 mg PO DAILY 02/11/19 02/11/19 MetFORMIN [glucOPHAGE] 500 mg PO TID 02/11/19 02/11/19 Review of Systems - Physician Review All systems were reviewed & negative as marked: Yes - Review of Systems Constitutional: absent: Fevers, Night Sweats Gastrointestinal: absent: Diarrhea, Nausea, Vomiting Genitourinary Female: Other (difficulty urinating) Musculoskeletal: Back Pain (left flank pain), Neck Pain (left-side non-radiating neck pain) Physical Exam Vital Signs Reviewed: Yes Vital Signs Temp Pulse Resp BP Pulse Ox 02/11/19 15:50 99.3 F 98 H 18 105/67 99 02/11/19 15:32 99.3 F 98 H 18 105/67 99 Temperature: Afebrile Blood Pressure: Normal Pulse: Regular Respiratory Rate: Normal Appearance: Positive for: Well-Appearing, Non-Toxic, Comfortable Pain Distress: None Mental Status: Positive for: Alert and Oriented X 3 - Systems Exam Head: Present: Atraumatic, Normocephalic Pupils: Present: PERRL Extroacular Muscles: Present: EOMI Conjunctiva: Present: Normal Mouth: Present: Moist Mucous Membranes Neck: Present: Other (cervical collar in place (patient has worn for 6 yrs, not prescribed)) Respiratory/Chest: Present: Clear to Auscultation, Good Air Exchange. No: Respiratory Distress, Accessory Muscle Use Cardiovascular: Present: Regular Rate and Rhythm, Normal S1, S2. No: Murmurs Abdomen: No: Tenderness, Distention, Peritoneal Signs Back: Present: CVA Tenderness (left side) Upper Extremity: Present: Normal Inspection. No: Cyanosis, Edema Lower Extremity: Present: Normal Inspection. No: Edema Neurological: Present: GCS=15, CN II-XII Intact, Speech Normal Skin: Present: Warm, Dry, Normal Color. No: Rashes Psychiatric: Present: Alert, Oriented x 3, Normal Insight, Normal Concentration Medical Decision Making ED Course and Treatment: 02/11/19 16:08 Impression: 28 year old female with left-side non-radiating neck pain and difficulty urinating. Differential Diagnosis included but are not limited to: Cervical vs. Chronic Pain, Left Flank Pain rule out UTI vs. Kidney Stones vs. Pylonephritis. Plan: -- Labs -- IV Fluids -- Pain Control -- Abd/Pelvis CT -- Urine Culture -- Urinalysis -- Reassess and disposition Progress Notes: the pt is feeling better. All labs, ct abd/pelvis are unremarkable. She wants to follow up with pcp. - RAD Interpretation Radiology Orders: 02/11/19 15:58 ABD & PELVIS W/O PO OR IV CONT [CT] Stat - Medication Orders Current Medication Orders: Diazepam (Valium) 5 mg PO ONCE ONE; Protocol Stop: 02/11/19 16:00 Sodium Chloride (Sodium Chloride 0.9%) 1,000 mls @ 999 mls/hr IV .Q1H1M STA Stop: 02/11/19 16:58 Ketorolac Tromethamine (Toradol) 30 mg IVP STAT STA Stop: 02/11/19 15:59 - Scribe Statement The provider has reviewed the documentation as recorded by the Tiera Garcia Provider Harpalibsavanna Attestation: All medical record entries made by the Scribe were at my direction and personally dictated by me. I have reviewed the chart and agree that the record accurately reflects my personal performance of the history, physical exam, medical decision making, and the department course for this patient. I have also personally directed, reviewed, and agree with the discharge instructions and disposition. Disposition/Present on Arrival - Present on Arrival Any Indicators Present on Arrival: No History of DVT/PE: No History of Uncontrolled Diabetes: No Urinary Catheter: No History of Decub. Ulcer: No History Surgical Site Infection Following: None - Disposition Have Diagnosis and Disposition been Completed?: Yes Diagnosis: Flank pain, Mesenteric adenitis, Muscular aches Disposition: HOME/ ROUTINE Disposition Time: 17:57 Patient Plan: Discharge Condition: GOOD Discharge Instructions (ExitCare): Flank Pain (DC), Mesenteric Lymphadenitis (DC) Prescriptions: Cyclobenzaprine [Cyclobenzaprine HCl] 10 mg PO Q8 #15 tab Ibuprofen [Motrin] 600 mg PO Q6 #20 tab Forms: [employer] (Armenian)
[2019-02-11 16:38] LABS: ALB/GLOB RATIO 1.1 (1.1-1.8); ALBUMIN 4.2 g/dL (3.0-4.8); ALT/SGPT 26 U/L (7-56); AST/SGOT 24 U/L (14-36); BASO # 0.03 K/mm3 (0.0-2.0); BASO % 0.3 % (0.0-3.0); BLOOD UREA NITROGEN 15 mg/dL (7-21); CALCIUM 9.7 mg/dL (8.4-10.5); EOS # 0.1 (0.0-0.7); EOS % 1.1 % (1.5-5.0); GFR NON-AFRICAN AMERICAN > 60; HEMOGLOBIN 11.5 g/dL (12.0-16.0); LYMPH # 4.1 (1.2-3.4); LYMPH % 43.1 % (22.0-35.0); MEAN CELL VOLUME 85.6 fl (80.0-105.0); MEAN CORPUSCULAR HEMOGLOBIN 27.2 pg (25.0-35.0); MEAN CORPUSCULAR HGB CONC 31.8 g/dl (31.0-37.0); MEAN PLATELET VOLUME 8.9 fl (7.0-11.0); MONO # 0.4 (0.1-0.6); RBC 4.23 10^6/uL (3.5-6.1); RED CELL DISTRIBUTION WIDTH 14.3 % (11.5-14.5); WHITE BLOOD COUNT 9.5 10^3/uL (4.5-11.0)
[2019-02-11 16:41] LABS: PH,URINE 7.5 (4.7-8.0); URINE BILIRUBIN NEGATIVE (NEGATIVE); URINE BLOOD NEGATIVE (NEGATIVE); URINE COLOR LIGHT YELLOW (YELLOW); URINE GLUCOSE (UA) NEGATIVE (NEGATIVE); URINE LEUKOCYTE ESTERASE NEGATIVE Leu/uL (NEGATIVE); URINE PROTEIN NEGATIVE mg/dL (<30 mg/dL); URINE UROBILINOGEN 0.2 E.U./dL (<1 E.U./dL)
[2019-02-11 16:42] LABS: HCG,QUALITATIVE URINE NEGATIVE (NEGATIVE); URINE APPEARANCE CLEAR (CLEAR)
--- NOTE | 2019-02-11 17:47 | CT ---
Date of service: 02/11/2019 PROCEDURE: CT Abdomen and Pelvis without intravenous contrast HISTORY: r/o renal stone COMPARISON: None. TECHNIQUE: Without contrast.. Contrast dose: 0 Radiation dose: Total exam DLP = 1164.36 mGy-cm. This CT exam was performed using one or more of the following dose reduction techniques: Automated exposure control, adjustment of the mA and/or kV according to patient size, and/or use of iterative reconstruction technique. FINDINGS: LOWER THORAX: Unremarkable. LIVER: Unremarkable. No gross lesion or ductal dilatation. GALLBLADDER AND BILE DUCTS: Contracted. No calcified gallstones. PANCREAS: Unremarkable. No gross lesion or ductal dilatation. SPLEEN: Unremarkable. ADRENALS: Unremarkable. No mass. KIDNEYS AND URETERS: No mass, calculus or hydronephrosis. VASCULATURE: Unremarkable. No aortic aneurysm. No aortic atherosclerotic calcification or mural plaque present. BOWEL: Unremarkable. No obstruction. No gross mural thickening. APPENDIX: Unremarkable. Normal appendix. PERITONEUM: Unremarkable. No free fluid. No free air. LYMPH NODES: There is no retroperitoneal or pelvic lymphadenopathy. There are numerous shotty subcentimeter lymph nodes within the small bowel mesentery and medial to the cecum. These findings may reflect mesenteric adenitis. BLADDER: Unremarkable. REPRODUCTIVE: Normal uterus BONES: No acute fracture. OTHER FINDINGS: None. IMPRESSION: Possible mesenteric adenitis. No evidence of urinary calculus or urinary tract obstruction. No additional abnormality.
[2019-02-11 18:07] VITALS: BP 124/69; PULSE 84; O2SAT 98
[2019-02-11 18:11] VITALS: TEMP 99.1
== END 2019-02-11 18:12 | disposition home or self-care (01) ==
LOC: ED 15:23
DX: I88.0 Nonspecific mesenteric lymphadenitis (principal); M79.10 Myalgia, unspecified site; R10.9 Unspecified abdominal pain; E03.9 Hypothyroidism, unspecified; Z79.84 Long term (current) use of oral hypoglycemic drugs
CPT/HCPCS: 74176; 80053; 81003; 81025; 84703; 85025; 87086; 96361; 96374; 99283; J1885; J7030

== ENCOUNTER 2019-03-06 09:35 | Emergency (ER) | payer OTHER ==
[2019-03-06 09:35] VITALS: BMI 38.2
[2019-03-06 09:43] VITALS: RESP 18; TEMP 97.6
[2019-03-06] MEDS ORDERED: Lidocaine 5% Patch TD STA (09:58)
--- NOTE | 2019-03-06 10:54 | ED PDOC ---
Arrival/HPI - General Chief Complaint: Back Pain Time Seen by Provider: 03/06/19 09:43 Historian: Patient - History of Present Illness Narrative History of Present Illness (Text): 03/06/19 10:54 28 y/o female with PMH of sciatica presents to the ED c/o left sided lower back pain x 2 days s/p lifting at the gym during a workout. Pain is sharp and intermittently radiates down into her left buttock and down the leg. Has not taken any medications for pain today. States she took ibuprofen and an old muscle relaxer yesterday with some relief. Denies fever, chills, abdominal pain, nausea, vomiting, hematuria, urinary frequency, saddle anesthesia, bowel/bladder incontinence, extremity numbness, weakness, paresthesias, calf pain or swelling, vaginal bleeding/odor/discharge or any other associated symptoms. Past Medical History - Provider Review Nursing Documentation Reviewed: Yes - Infectious Disease Hx of Infectious Diseases: None - Cardiac Hx Cardiac Disorders: No - Pulmonary Hx Respiratory Disorders: No - Neurological Hx Neurological Disorder: Yes Hx Migraine: Yes - HEENT Hx HEENT Disorder: No - Renal Hx Renal Disorder: No - Endocrine/Metabolic Hx Hypothyroidism: Yes - Hematological/Oncological Hx Blood Disorders: No - Integumentary Hx Dermatological Disorder: No - Musculoskeletal/Rheumatological Hx Musculoskeletal Disorders: No - Gastrointestinal Hx Gastrointestinal Disorders: No - Genitourinary/Gynecological Hx Genitourinary Disorders: No Other/Comment: Ovarian cysts - Psychiatric Hx Psychophysiologic Disorder: Yes Hx Anxiety: Yes Hx Substance Use: No - Anesthesia Hx Anesthesia: No Family/Social History - Physician Review Nursing Documentation Reviewed: Yes Family/Social History: No Known Family HX Smoking Status: Never Smoked Hx Alcohol Use: No Hx Substance Use: No Allergies/Home Meds Allergies/Adverse Reactions: Allergies No Known Allergies Allergy (Verified 03/06/19 09:42) Home Medications: Home Meds Medication Instructions Recorded Confirmed Levothyroxine [Synthroid] 0.05 mg PO DAILY 02/11/19 03/06/19 Review of Systems - Review of Systems Constitutional: Normal. absent: Fevers Respiratory: Normal. absent: SOB Cardiovascular: Normal. absent: Chest Pain, Palpitations Gastrointestinal: Normal. absent: Abdominal Pain, Nausea, Vomiting Genitourinary Female: Dysuria. absent: Frequency, Hematuria, Vaginal Bleeding, Vaginal Discharge Musculoskeletal: Back Pain, Other (Left leg pain) Skin: Normal. absent: Rash Neurological: Normal. absent: Dizziness, Focal Weakness Physical Exam Vital Signs Reviewed: Yes Vital Signs Temp Pulse Resp BP Pulse Ox 03/06/19 09:36 97.6 F 73 18 111/75 97 Temperature: Afebrile Blood Pressure: Normal Pulse: Regular Respiratory Rate: Normal Appearance: Positive for: Well-Appearing, Non-Toxic, Uncomfortable Pain Distress: Mild Mental Status: Positive for: Alert and Oriented X 3 - Systems Exam Head: Present: Atraumatic, Normocephalic Pupils: Present: PERRL Extroacular Muscles: Present: EOMI Conjunctiva: Present: Normal Mouth: Present: Moist Mucous Membranes Neck: Present: Normal Range of Motion. No: MIDLINE TENDERNESS Respiratory/Chest: Present: Clear to Auscultation, Good Air Exchange. No: Respiratory Distress, Accessory Muscle Use Cardiovascular: Present: Regular Rate and Rhythm, Normal S1, S2, Peripheal Pulses Present Abdomen: Present: Normal Bowel Sounds. No: Tenderness Back: Present: Normal Inspection, Paraspinal Tenderness (left lumbar), Pain with Leg Raise (Left at 30 degrees). No: CVA Tenderness, Midline Tenderness Upper Extremity: Present: Normal Inspection. No: Cyanosis, Edema Lower Extremity: Present: Normal Inspection, NORMAL PULSES, Normal ROM, Tende rness (left buttock), Neurovascularly Intact, Capillary Refill < 2 s. No: Edema, Swelling, Deformity, Temperature Abnormalties Neurological: Present: GCS=15, CN II-XII Intact, Speech Normal, Motor Func Grossly Intact, Normal Sensory Function, Gait Normal Skin: Present: Warm, Dry, Normal Color. No: Rashes Psychiatric: Present: Alert, Oriented x 3, Normal Insight, Normal Concentration, Normal Affect, Normal Mood Medical Decision Making ED Course and Treatment: 10:50 Initial Plan: * UA, POC preg * Lidoderm Patch, Toradol, Valium UA unremarkable, no UTI Patient reports significant improvement in pain with medication. Comfortable with discharge home. Advised PMD and orthopedic followup/ Diagnostic testing results and plan of care discussed with patient. Strict instructions given regarding prescription use, importance of followup, and signs/symptoms to return to ER including saddle anesthesia, bowel/bladder incontinence, extremity weakness, or any other new/worsening symptoms. Pt verbalized understanding of discussion. Patient is A&Ox3, ambluating with steady gait, with vital signs stable for discharge. - Lab Interpretations Lab Results: Lab Results 03/06/19 10:25: Urine Color Yellow, Urine Appearance Clear, Urine pH 6.0, Ur Specific [place] 1.025, Urine Protein Negative, Urine Glucose (UA) Negative, Urine Ketones Negative, Urine Blood Negative, Urine Nitrate Negative, Urine Bilirubin Negative, Urine Urobilinogen 0.2, Ur Leukocyte Esterase Negative I have reviewed the lab results: Yes - Medication Orders Current Medication Orders: Discontinued Medications Diazepam (Valium) 5 mg PO ONCE ONE; Protocol Stop: 03/06/19 09:59 Last Admin: 03/06/19 10:33 Dose: 5 mg Ketorolac Tromethamine (Toradol) 60 mg IM STAT STA Stop: 03/06/19 09:59 Last Admin: 03/06/19 10:33 Dose: 60 mg MAR Pain Assessment Document 03/06/19 10:33 BB (Rec: 03/06/19 10:34 BB [id number]) Pain Reassessment Is this a pain reassessment? No Sleep Is patient sleeping during reassessment? No Presence of Pain Presence of Pain Yes Pain Scale Used Protocol: PSCALES Pain Scale Used Numeric Location Left, Right or Bilateral Left Upper or Lower Lower Pain Location Body Site Back Description Description Constant Intensity of Pain at present 9 Pain Behavior Moaning Withdrawal from Touch Grasping Site Rubbing Site Restlessness IM Administration Charges Document 03/06/19 10:33 BB (Rec: 03/06/19 10:34 BB [id number]) Injection Site MAR Injection Site Left Gluteus Medius Charges for Administration # of IM Administrations 1 Lidocaine (Lidoderm) 1 ea TD STAT STA Stop: 03/06/19 09:59 Last Admin: 03/06/19 10:33 Dose: 1 ea MAR Transdermal Patch Site Document 03/06/19 10:33 BB (Rec: 03/06/19 10:33 BB [id number]) Transdermal Patch Site Transdermal Patch Site Left Lower Back Disposition/Present on Arrival - Present on Arrival Any Indicators Present on Arrival: No History of DVT/PE: No History of Uncontrolled Diabetes: No Urinary Catheter: No History of Decub. Ulcer: No History Surgical Site Infection Following: None - Disposition Have Diagnosis and Disposition been Completed?: Yes Diagnosis: Low back pain with sciatica Disposition: HOME/ ROUTINE Disposition Time: 11:36 Patient Plan: Discharge Condition: IMPROVED Discharge Instructions (ExitCare): Sciatica, Low Back Pain in Adults, Sciatica Exercises Additional Instructions: Ibuprofen every 8 hours as needed for pain, take with food Flexeril nightly before bed, do not take before driving Lidoderm patches daily, 12 hours on 12 hours off Followup with orthopedic within 2 days Followup with primary doc within 2 days Return to ER with any new/worsening symptoms Prescriptions: Cyclobenzaprine [Cyclobenzaprine HCl] 10 mg PO HS #7 tab Ibuprofen [Motrin Tab] 600 mg PO Q8 PRN #30 tab PRN Reason: Pain, Moderate (4-7) Lidocaine 5% [Lidoderm] 1 ea TD DAILY PRN #30 patch PRN Reason: Pain, Mild (1-3) Referrals: Cathy Haynes MD [Primary Care Provider] - Follow up with primary Brad Morel MD [Staff Provider] - Follow up with primary Forms: [employer] (Polish), WORK NOTE
[2019-03-06 11:20] LABS: URINE BILIRUBIN NEGATIVE (NEGATIVE); URINE BLOOD NEGATIVE (NEGATIVE); URINE GLUCOSE (UA) NEGATIVE (NEGATIVE); URINE LEUKOCYTE ESTERASE NEGATIVE Leu/uL (NEGATIVE); URINE PROTEIN NEGATIVE mg/dL (<30 mg/dL); URINE UROBILINOGEN 0.2 E.U./dL (<1 E.U./dL)
[2019-03-06 11:23] LABS: URINE APPEARANCE CLEAR (CLEAR); URINE COLOR YELLOW (YELLOW)
[2019-03-06 11:43] VITALS: BP 110/64; PULSE 69; O2SAT 99
== END 2019-03-06 11:44 | disposition home or self-care (01) ==
LOC: ED 09:35
DX: M54.40 Lumbago with sciatica, unspecified side (principal)
CPT/HCPCS: 81003; 81025; 96372; 99283; J1885